=== PATIENT | male | born 1995 | race Caucasian/White ===

== ENCOUNTER 2017-05-03 20:13 | Emergency (ER) | payer BC ==
[~2017-05-03] VITALS: Ht 177.8 cm; Wt 90.3 kg
[2017-05-03 20:30] VITALS: BP 140/83
[2017-05-03] MEDS ORDERED: ONDA4TAB10 SL (20:34)
--- NOTE | 2017-05-03 20:36 | PHYS DOC ---
General Chief Complaint: NAUSEA/VOMITING/DIARRHEA Stated Complaint: DIARRHEA,VOMITING Time Seen by MD: 20:17 Source: patient Exam Limitations: no limitations Problems: History of Present Illness Initial Comments 21-year-old male who comes to the ED complaining of vomiting and diarrhea. Patient states that today he's had 3 episodes of emesis, also states he's had several loose stools. No blood noted in either no fever chills sweats or body aches. He's had mild generalized abdominal cramping relieved by emesis or bm, no travel or bad food exposure no sick contacts with similar symptoms. No pre- arrival treatment patient just wants something to stop vomiting and to go home. ED vital signs are stable Timing/Duration: 4-6 hours Severity: moderate Modifying Factors: worse with eating Associated Symptoms: nausea/vomiting Allergies: Coded Allergies: No Known Drug Allergies (Unverified , 05/03/17) Past Medical History Medical History: no pertinent history Surgical History: noncontributory Social History Smoker: non-smoker Alcohol: none Drugs: none Review of Systems Constitutional: denies chills, denies diaphoresis, denies fever, denies malaise Respiratory: denies cough, denies shortness of breath Cardiovascular: denies chest pain, denies palpitations Gastrointestinal: see HPI Genitourinary: denies dysuria, denies frequency, denies hematuria Musculoskeletal: denies back pain, denies joint swelling, denies neck pain Psychiatric/Neurological: denies headache, denies numbness, denies paresthesia Physical Exam General Appearance: WD/WN, no apparent distress Ear, Nose, Throat: hearing grossly normal, normal ENT inspection, normal pharynx Neck: non-tender, supple Respiratory: normal breath sounds, no respiratory distress Cardiovascular: normal peripheral pulses, regular rate, rhythm Gastrointestinal: normal bowel sounds, non tender, soft Extremities: non-tender, normal inspection Neurologic/Psychiatric: alert, oriented x 3 Orders, Labs, Meds Patient requests no workup she was something to stop vomiting and to be discharged home. I discussed Zofran and dietary modification and oral hydration he expressed agreement and understanding. Departure Time of Disposition: 20:35 Disposition: 01 HOME, SELF-CARE Diagnosis: gastroenteritis likely viral Condition: GOOD Patient Instructions: Viral Gastroenteritis, [id number] Additional Instructions: Clear liquids today, advance diet slowly as tolerated starting tomorrow. Aggressive hydration with Gatorade and water. [id number] Tylenol and ibuprofen as needed. Prescription: William ODT Follow-up with a doctor in 4-5 days if no improvement. Return to ED with new or changing symptoms. MACEY ESTES DO May 03, 2017 20:36
[2017-05-03] MEDS ORDERED: ONDANSETRON 4MG ODT 4TABLET STARTPACK. PO ONE (20:45)
[2017-05-03] MEDS ORDERED: ONDANSETRON ODT 4 MG TAB.RAPDIS PO ONE (20:45)
== END 2017-05-03 20:42 | disposition home or self-care (01) ==
LOC: ER 20:13
DX: K52.9 Noninfective gastroenteritis and colitis, unspecified (principal)
CPT/HCPCS: 99283; Q0162

== ENCOUNTER 2017-05-06 01:36 | Emergency (ER) | payer BC ==
[~2017-05-06] VITALS: Ht 177.8 cm; Wt 90.3 kg
[2017-05-06 01:36] VITALS: BP 153/99
[~2017-05-06 01:36] MED LIST: ONDA4TAB10 SL
[2017-05-06] MEDS ORDERED: silver sulfADIAZINE 1% CREAM 50GM JAR. TP ONE (01:48)
[2017-05-06] MEDS ORDERED: HYDROcodone/APAP 10/325 1 TAB TABLET ONE (01:49)
[2017-05-06] MEDS ORDERED: SILV20CR14 TP (01:51)
[2017-05-06] MEDS ORDERED: HYDR-971 PO (01:51)
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
== END 2017-05-06 02:05 | disposition home or self-care (01) ==
LOC: ER 01:36
DX: T23.362A Burn of third degree of back of left hand, initial encounter (principal); T31.0 Burns involving less than 10% of body surface; X10.2XXA Contact with fats and cooking oils, initial encounter; Y93.G3 Activity, cooking and baking; Y99.8 Other external cause status; Y92.89 Other specified places as the place of occurrence of the external cause
CPT/HCPCS: 16020; 99284-25